=== PATIENT | male | born 1995 | race African-American/Black ===

== ENCOUNTER 2022-08-16 04:59 | Inpatient (IN) | payer OTHER, MEDICAID ==
[~2022-08-16] VITALS: Ht 182.9 cm; Wt 63.0 kg
[~2022-08-16 04:59] MED LIST: OXCA150T3 PO
[2022-08-16] MEDS ORDERED: LORazepam 2MG/ML-1ML VIAL IV ONE (06:45)
[2022-08-16 07:20] LABS: Lactic Acid w/Reflex 2.5 mmol/L (0.4-2.0)
[2022-08-16 07:27] LABS: Potassium 4.9 mmol/L (3.5-5.1)
[2022-08-16 07:41] LABS: Albumin 3.9 g/dL (3.4-5.0); BUN/Creatinine Ratio 13.5 (10.0-20.0); Bilirubin, Total 0.3 mg/dL (0.2-1.0); Calcium 8.7 mg/dL (8.5-10.1); Total Protein 8.2 g/dL (6.4-8.2)
[2022-08-16 07:49] LABS: Basophils # (auto) 0.1 10 ^3/uL (0-0.2); Basophils % (auto) 1.1 % (0.0-2.0); Eosinophils # (auto) 0 10 ^3/uL (0-0.8); Eosinophils % (auto) 0.1 % (0.0-7.0); Hematocrit 43.3 % (41.0-53.0); Hemoglobin 14.6 g/dL (13.5-17.5); Lymphocytes # (auto) 0.4 10 ^3/uL (0.4-5.4); Lymphocytes % (auto) 3.3 % (10.0-50.0); Mean Corpuscular Hemoglobin 27.5 pg (28.0-32.0); Mean Corpuscular Hgb Conc. 33.6 g/dL (32.0-36.0); Mean Corpuscular Volume 81.7 fL (80.0-100.0); Monocytes # (auto) 0.7 10 ^3/uL (0-1.3); Monocytes % (auto) 5.6 % (0.0-12.0); Neutrophils # (auto) 10.6 10 ^3/uL (1.6-8.6); Neutrophils % (auto) 89.9 % (37.0-80.0); Nucleated Red Blood Cells % 0.1 %; Red Cell Distribution Width 13.1 % (11.8-14.3); White Blood Cell 11.8 10^3/uL (4.4-10.8)
[2022-08-16] MEDS ORDERED: SODIUM CHLORIDE 0.9% 1,000 ML IV ONE (08:15)
[2022-08-16] MEDS: DEXTROSE 10% 1,000 ML IV SCH ×2 (09:25→17:45)
[2022-08-16] MEDS ORDERED: diphenhdrAMINE HCL 50 MG/1 ML VL IM ONE (09:45)
[2022-08-16] MEDS ORDERED: HALOPERIDOL LACTATE 5 MG/ML INJ VIAL IM ONE (09:45)
[2022-08-16 10:56] LABS: Urine Bacteria NONE SEEN /hpf (None Seen); Urine Blood Negative /uL (Negative); Urine Mucus FEW (None Seen); Urine Specific Gravity 1.011 (1.001-1.035); Urine WBC 1 /hpf (0 - 3)
[2022-08-16 11:12] LABS: Alcohol, Urine < 3.0 mg/dL (0-10); Amphetamine Screen, Urine NEGATIVE (NEGATIVE); Barbiturate Scree,Urine NEGATIVE (NEGATIVE); Benzodiazephine Screen, Urine POSITIVE (NEGATIVE); Cannabinoid Screen, Urine NEGATIVE (NEGATIVE); Cocaine Screen, Urine NEGATIVE (NEGATIVE); Opiate Scree,Urine NEGATIVE (NEGATIVE); Phencyclidine Screen, Urine NEGATIVE (NEGATIVE)
[2022-08-16] MEDS ORDERED: KETAMINE 50mg/ML 10ml Vial (500mg/10ml) IV ONE (11:45)
[2022-08-16] MEDS ORDERED: KETAMINE 50mg/ML 10ml Vial (500mg/10ml) IM ONE (19:00)
[2022-08-17] MEDS: DEXTROSE 10% 1,000 ML IV SCH ×2 (03:45→13:45)
[2022-08-17] MEDS ORDERED: ONDANSETRON HCL 4 MG/2 ML VIAL IV PRN (15:00)
[2022-08-17] MEDS ORDERED: LORazepam 2MG/ML-1ML VIAL IV PRN ×2 (15:00→21:00)
[2022-08-17] MEDS ORDERED: OXCA150T61 PO (15:05)
[2022-08-17] MEDS ORDERED: ZIPR20CA27 PO (15:05)
[2022-08-17] MEDS ORDERED: BUSP10TA31 PO (15:05)
[2022-08-17] MEDS ORDERED: AML5T PO (15:05)
[2022-08-17] MEDS ORDERED: CLON0.1T PO (15:05)
[2022-08-17] MEDS ORDERED: ZIPR40CA23 PO (15:05)
[2022-08-17] MEDS: OXcarbazepine 300 MG TAB PO SCH (23:23)
[2022-08-17] MEDS: LACOSAMIDE 50 MG TAB PO SCH (23:32)
[2022-08-18] MEDS: DEXTROSE 10% 1,000 ML IV SCH ×2 (00:27→09:45)
[2022-08-18 05:07] LABS: Basophils # (auto) 0 10 ^3/uL (0-0.2); Eosinophils # (auto) 0.2 10 ^3/uL (0-0.8); Eosinophils % (auto) 3.3 % (0.0-7.0); Hematocrit 47.7 % (41.0-53.0); Hemoglobin 15.6 g/dL (13.5-17.5); Lymphocytes # (auto) 1.1 10 ^3/uL (0.4-5.4); Lymphocytes % (auto) 23.7 % (10.0-50.0); Mean Corpuscular Hemoglobin 27.5 pg (28.0-32.0); Mean Corpuscular Hgb Conc. 32.7 g/dL (32.0-36.0); Mean Corpuscular Volume 83.9 fL (80.0-100.0); Monocytes # (auto) 0.6 10 ^3/uL (0-1.3); Monocytes % (auto) 11.8 % (0.0-12.0); Neutrophils # (auto) 2.9 10 ^3/uL (1.6-8.6); Neutrophils % (auto) 60.2 % (37.0-80.0); Nucleated Red Blood Cells % 0.3 %; Red Blood Cells 5.69 10^6/uL (4.5-5.90); Red Cell Distribution Width 13.4 % (11.8-14.3); White Blood Cell 4.7 10^3/uL (4.4-10.8)
[2022-08-18 05:31] LABS: Albumin 3.5 g/dL (3.4-5.0); BUN/Creatinine Ratio 18.5 (10.0-20.0); Bilirubin, Total 0.3 mg/dL (0.2-1.0); Calcium 8.9 mg/dL (8.5-10.1); Potassium 4.2 mmol/L (3.5-5.1); Total Protein 7.9 g/dL (6.4-8.2)
[2022-08-18] MEDS: OXcarbazepine 300 MG TAB PO SCH (11:39)
[2022-08-18] MEDS: LACOSAMIDE 50 MG TAB PO SCH (11:40)
[2022-08-18 21:00] VITALS: BP 123/67
== END 2022-08-18 21:26 | disposition short-term general hospital (02) | DRG 101 ==
LOC: ER 04:59 → EDBD 04:59 → OVERFLOW 08-17 15:00
PROVIDERS: ADMIT Nurse Practitioner Family; ATTEND Internal Medicine
DX: G40.201 Localization-related (focal) (partial) symptomatic epilepsy and epileptic syndromes with complex partial seizures, not intractable, with status epilepticus (principal); F84.0 Autistic disorder; F79 Unspecified intellectual disabilities; R77.8 Other specified abnormalities of plasma proteins; D72.829 Elevated white blood cell count, unspecified; G40.401 Other generalized epilepsy and epileptic syndromes, not intractable, with status epilepticus; Z79.899 Other long term (current) drug therapy; Z86.73 Personal history of transient ischemic attack (TIA), and cerebral infarction without residual deficits; Z20.822 Contact with and (suspected) exposure to COVID-19; Z91.040 Latex allergy status
CPT/HCPCS: 36415; 70450; 71045; 80053; 80307; 81001; 82962; 83605; 83880; 84484; 85025; 87426; 93005; 96361; 96365; 96372; 96375; G0378; J7060